=== PATIENT | male | born 1945 | race Caucasian/White ===

== ENCOUNTER 2016-12-30 06:57 | Day surgery (SDC) | payer OTHER ==
--- NOTE | 2016-12-21 19:43 | HP ---
PREOPERATIVE HISTORY AND PHYSICAL EXAM: DATE OF ADMISSION/SURGERY: 12/30/16 [facility] DATE OF OFFICE VISIT/ENCOUNTER: 12/21/16 ATTENDING SURGEON: Patricia Gardner MD (DICTATED BY BRENNEN MC) PROCEDURE: Left thumb carpometacarpal arthroplasty. CHIEF COMPLAINT: Base of left thumb pain. HISTORY OF PRESENT ILLNESS: This is a 71-year-old male who has had longstanding base of left thumb pain. 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 The patient has received a few cortisone injections which were helpful particularly initially, but now have gone to the point where they are providing minimal relief. The patient would like to proceed with more definitive treatment at this time in the form of a left thumb carpometacarpal arthroplasty. PAST MEDICAL HISTORY: 1. Diabetes. 2. Hypertension. 3. Hypercholesterolemia. 4. GERD. PAST SURGICAL HISTORY: 1. Appendectomy. 2. Tonsillectomy. CURRENT MEDICATIONS: 1. Acetaminophen 325 mg 2 tabs q.6 hours p.r.n. pain. 2. Amlodipine besylate 10 mg half tab daily. 3. Aspirin 81 mg daily. 4. Atorvastatin calcium 40 mg daily. 5. Folic acid daily. 6. Invokana 100 mg 1 tab every other day. 7. Janumet mg 1 tab twice a day. 8. Loratadine. 9. Losartan potassium/hydrochlorothiazide half tab daily. 10. [place]-3 acid ethyl esters 1 g daily. 11. Omeprazole 10 mg daily. ALLERGIES: No known drug allergies. FAMILY MEDICAL HISTORY: Diabetes. 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 He denies tobacco use. He does admit to marijuana use on somewhat of a regular occasion. Denies alcohol use. REVIEW OF SYSTEMS: General: Negative for fevers, chills, or night sweats. No known anesthesia problems. HEENT: Negative for headache, lightheadedness, or syncopal episodes. Integumentary: Negative for abrasions, lesions, or open wounds. Cardiothoracic: Positive for hypertension. Negative for chest pain, palpitations, or edema. Pulmonary: Negative for shortness of breath with exertion, chronic cough, or COPD. GI: Positive for GERD. Negative for nausea , vomiting, diarrhea, or constipation. : Negative for nocturia, urinary frequency, urgency, history of UTIs, or kidney problems. Musculoskeletal: Positive for current complaint. Negative for chronic or intermittent back pain or history of fractures. Neurological: Negative for paresthesias, numbness, history of seizure, stroke, or epilepsy. Endocrine: Positive for diabetes. Negative for thyroid issues. Hematologic: Negative for easy bruising, anemia, excessive bleeding, or history of DVT. Infectious Disease: Negative for history of MRSA, hepatitis C, or HIV. PHYSICAL EXAMINATION GENERAL: Well-developed, well-nourished, 71-year-old male in no acute distress. HEENT: Normocephalic, atraumatic. Pupils are equal, round, reactive to light and accommodation. Extraocular movements are intact. NECK: Supple. No palpable lymph nodes. Throat is clear. PULMONARY: Lungs are clear to auscultation bilaterally. No wheezes, rales, or rhonchi. CARDIOTHORACIC: Regular rate and rhythm. S1, S2. No murmurs, rubs, or gallops. ABDOMEN: Positive bowel sounds. Soft, nontender. NEUROLOGICAL: Alert and oriented x3. Cranial nerves II through XII are intact. Sensation is intact to light touch. PERIPHERAL VASCULAR: 2+ radial and ulnar pulses. Negative Jim test. MUSCULOSKELETAL: On exam of his left hand, he has tenderness to palpation at the base of his thumb at the CMC joint and slight decrease in range of motion particularly with opposition. Increased pain with abduction of the thumb. Positive grind test. Neurovascular function is intact. DIAGNOSTIC STUDIES: X-rays, AP, lateral, and oblique of the left thumb show severe degenerative arthritis of the CMC joint. IMPRESSION: Left thumb carpometacarpal joint arthritis. PLAN: The patient is scheduled to undergo left thumb carpometacarpal joint arthroplasty with Dr. Gardner on 12/30/16. He will return to the office 10 to 14 days for followup and suture removal. A prescription for [place] was e-scribed to the patient's pharmacy for postoperative pain management. BRENNEN MC [id number]/[facility] #: [id number] ALLEN
[~2016-12-30 06:57] MED LIST: Buffered Lidocaine 1% SYR 3ML* 3 ML/SYR SYRINGE INTRADERM ONE; Dexamethasone IV* 4 MG/ML 1 ML (4 MG) IV SLOW PU ONE; Dexamethasone IV* 4 MG/ML 1 ML (4 MG) ONE; Famotidine IV* 10 MG/ML 2 ML (20 mg) IV ONE; Famotidine IV* 10 MG/ML 2 ML (20 mg) ONE
[2016-12-30] MEDS ORDERED: ceFAZolin 2 GM PREMIX(*) 2 GM/50 ML BAG IVPB ONE (07:02)
[2016-12-30] MEDS ORDERED: Midazolam* 1 MG/ML 2 ML VIAL (2 MG) ONE (07:08)
[2016-12-30] MEDS ORDERED: fentaNYL* 50 MCG/ML 2 ML VIAL (100 MCG VIAL) ONE (07:08)
[2016-12-30] MEDS ORDERED: HYDROmorphone* 1 MG/ML 1 ML SYR ONE ×2 (07:16→08:24)
[2016-12-30] MEDS ORDERED: fentaNYL* 50 MCG/ML 2 ML VIAL (100 MCG VIAL) IV PRN (07:25)
[2016-12-30] MEDS ORDERED: PROCHLORPERAZINE INJ 5 MG/ML 2 ML VIAL IV PRN (07:25)
[2016-12-30] MEDS ORDERED: Ondansetron INJ* 2 MG/ML VIAL IV PRN (07:25)
[2016-12-30] MEDS ORDERED: HYDROmorphone* 1 MG/ML 1 ML SYR IV PRN (07:25)
[2016-12-30] MEDS ORDERED: DiMENhydriNATE IV* 50 MG/ML VIAL IV PUSH PRN (07:25)
[2016-12-30] MEDS ORDERED: VASOPRESSIN 20 UNITS/ML 1 ML VIAL ONE (08:15)
[2016-12-30] MEDS ORDERED: Meperidine SYRINGE* 50 MG/ML ONE (08:30)
[2016-12-30] MEDS ORDERED: Ketorolac INJ* 30 MG/ML 1 ML VIAL ONE (08:47)
[2016-12-30] MEDS ORDERED: Propofol* 10 MG/ML 20 ML BTL IV PUSH ONE (08:47)
[2016-12-30] MEDS ORDERED: Lidocaine 2% PF * 5 ML VIAL ONE (08:47)
[2016-12-30] MEDS ORDERED: Phenylephrine IV* 40 MCG/ML 10 ML SYRINGE ONE (08:47)
[2016-12-30] MEDS ORDERED: Ondansetron INJ* 2 MG/ML VIAL ONE (08:47)
[2016-12-30 09:58] VITALS: BP 116/70
--- NOTE | 2016-12-30 23:37 | OP ---
DATE OF OPERATION: 12/30/16 [facility] DATE OF : 45 SURGEON: Patricia Gardner MD WEAVER NARROW [employer]AB[employer]: BRENNEN Dent ANESTHESIOLOGIST: Otis Thomas MD ANESTHESIA: Block and general. PRE-OP DIAGNOSIS: Left thumb CMC arthritis. POST-OP DIAGNOSIS: Left thumb CMC arthritis. OPERATIVE PROCEDURE: Left thumb CMC arthroplasty. ESTIMATED BLOOD LOSS: Zero. TOURNIQUET TIME: About 45 minutes. DESCRIPTION OF PROCEDURE: The patient was brought to the operating room, was given a general anesthetic and placed in the supine position on the operating table with a tourniquet around his left upper arm. The skin of his left upper extremity was prepped and draped in the usual sterile fashion. An S-shaped incision was made centered over the CMC joint of the left thumb. We dissected through the subcutaneous tissue. Branches of the radial sensory nerve were located and retracted by the surgical supervisor, Yvette Tilley. The radial artery was then carefully dissected out and also retracted by the surgical supervisor, Yvette Tilley. A distally based U-shaped flap was created of the thumb CMC joint capsule and this was elevated off the trapezium. The trapezium was then removed in its entirety in piecemeal fashion and sent for pathology. The wound was irrigated and then the CMC joint capsule was secured to the FCR tendon in the base of the wound with 4-0 nylon suture, this reapproximated the metacarpal in nice abduction. The remainder of the capsule was closed with 4-0 nylon suture. The skin edges were reapproximated with 4-0 nylon suture. The wound dressed with Xeroform, 4x4, Webril, and a thumb spica splint. The patient tolerated the procedure well and was brought to the recovery room in good condition. [id number]/[facility] #: [id number] MTDD
== END 2016-12-30 09:54 | disposition home or self-care (01) ==
LOC: OREAST 06:57
PROVIDERS: ATTEND Orthopaedic Surgery
DX: M18.0 Bilateral primary osteoarthritis of first carpometacarpal joints (principal); E11.9 Type 2 diabetes mellitus without complications; I10 Essential (primary) hypertension; E78.00 Pure hypercholesterolemia, unspecified; K21.9 Gastro-esophageal reflux disease without esophagitis; Z79.82 Long term (current) use of aspirin
CPT/HCPCS: 88304; 88311; J0690; J1100; J1170; J1885; J2250; J2405; J2704; J3010

== ENCOUNTER 2017-04-04 06:42 | Day surgery (SDC) | payer OTHER ==
--- NOTE | 2017-03-29 10:34 | HP ---
PREOPERATIVE HISTORY AND PHYSICAL: DATE OF SURGERY/ADMISSION: 04/04/17 [facility] DATE OF OFFICE VISIT/ENCOUNTER: 03/22/17 ATTENDING SURGEON: Patricia Gardner MD * (DICTATED BY BRENNEN MC) PROCEDURE: Right thumb carpometacarpal arthroplasty. CHIEF COMPLAINT: Base of right thumb pain. HISTORY OF PRESENT ILLNESS: This is a 71-year-old male who has had longstanding base of right thumb pain. 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 The patient has failed conservative treatment including cortisone injections. He is now interested in proceeding with more definitive treatment in the form of a right thumb carpometacarpal arthroplasty. The patient recently had an arthroplasty performed on his left thumb and did well with that. PAST MEDICAL HISTORY: 1. Diabetes. 2. Hypertension. 3. Hypercholesterolemia. 4. GERD. PAST SURGICAL HISTORY: 1. Appendectomy. 2. Tonsillectomy. 3. Left thumb CMC arthroplasty. CURRENT MEDICATIONS: 1. Amlodipine besylate 10 mg half tab daily. 2. Aspirin 81 mg daily. 3. Atorvastatin calcium 40 mg daily. 4. Folic acid daily. 5. Invokana 100 mg one tab every other day. 6. Janumet mg one tab twice a day. 7. Loratadine. 8. Losartan potassium/hydrochlorothiazide. 9. [place] 3 acid ethyl esters 1 g daily. ALLERGIES: No known drug allergies. FAMILY MEDICAL HISTORY: Diabetes. 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 He denies tobacco use. He does admit to smoking marijuana on somewhat of a regular occasion. He denies alcohol use. REVIEW OF SYSTEMS: General: Negative for fevers, chills, or night sweats. No known anesthesia problems. HEENT: Negative for headache, lightheadedness, or syncopal episodes. Integumentary: Negative for abrasions, lesions, or open wounds. Cardiothoracic: Positive for hypertension, negative for chest pain, palpitations or edema. Pulmonary: Negative for shortness of breath with exertion, chronic cough, COPD. GI: Positive for GERD, negative for nausea, vomiting, diarrhea or constipation. : Negative for nocturia, urinary frequency, urgency, history of UTIs, or kidney problems. Musculoskeletal: Positive for current complaints. Negative for chronic or intermittent back pain or history of fractures. Neurological: Negative for paresthesias, numbness, history of seizure, stroke, or epilepsy. Endocrine: Positive for diabetes, negative for thyroid issues. Hematologic: Negative for easy bruising , anemia, excessive bleeding, or history of DVT. Infectious Disease: Negative for history of MRSA, hepatitis C, or HIV. PHYSICAL EXAMINATION GENERAL: Well-developed, well-nourished 71-year-old male, in no acute distress. HEENT: Normocephalic, atraumatic. Pupils are equal, round, and reactive to light and accommodation. Extraocular movements are intact. NECK: Supple. No palpable lymph nodes. Throat is clear. PULMONARY: Lungs are clear to auscultation bilaterally. No wheezes, rales, or rhonchi. CARDIOTHORACIC: Regular rate and rhythm. S1, S2. No murmurs, rubs or gallops. ABDOMEN: Positive bowel sounds, soft, nontender. NEUROLOGICAL: Alert and oriented x3, cranial nerves II through XII are intact. Sensation is intact to light touch. Peripheral vascular, 2+ radial and ulnar pulses. MUSCULOSKELETAL: On exam of the right hand, there is tenderness to palpation at the base of the thumb at the CMC joint with slight decrease in range of motion particularly with apposition. He has increased pain with abduction of the thumb and positive grind test. Neurovascular function is intact. DIAGNOSTIC STUDIES: X-rays AP, lateral, and oblique of the right thumb shows severe degenerative arthritis of the CMC joint. IMPRESSION: Right thumb, carpometacarpal joint arthritis. PLAN: The patient is scheduled to undergo right thumb carpometacarpal joint arthroplasty with Dr. Gardner on 04/04/17. He will return to the office in 10 to 14 days for followup and suture removal. A prescription for [place] was e- scribed to the patient's pharmacy for postoperative pain management. BRENNEN MC [id number]/[facility] #: [id number] MTDCelina
[~2017-04-04 06:42] MED LIST changes: +Buffered Lidocaine 0.9% SYRIN* 5 ML/SYR SYRINGE INTRADERM ONE; -Buffered Lidocaine 1% SYR 3ML* 3 ML/SYR SYRINGE INTRADERM ONE; -Dexamethasone IV* 4 MG/ML 1 ML (4 MG) ONE; -Famotidine IV* 10 MG/ML 2 ML (20 mg) ONE
[2017-04-04] MEDS ORDERED: ceFAZolin 2 GM PREMIX (*) 50 ML IVPB ONE (06:54)
[2017-04-04] MEDS ORDERED: Dexamethasone IV* 4 MG/ML 1 ML (4 MG) ONE (06:54)
[2017-04-04] MEDS ORDERED: Famotidine IV* 10 MG/ML 2 ML (20 mg) ONE (06:55)
[2017-04-04] MEDS ORDERED: Lidocaine 1% INJ* 10 MG/ML 30 ML SDV ONE (07:06)
[2017-04-04] MEDS ORDERED: Bupivacaine 0.5% SDV PF* 30 ML VIAL ONE (07:06)
[2017-04-04] MEDS ORDERED: fentaNYL* 50 MCG/ML 2 ML VIAL (100 MCG VIAL) ONE (07:36)
[2017-04-04] MEDS ORDERED: Lidocaine 0.5%* 50 ML SDV ONE (07:37)
[2017-04-04] MEDS ORDERED: Midazolam* 1 MG/ML 5 ML VIAL (5 MG) ONE (07:37)
[2017-04-04] MEDS ORDERED: Sodium Bicarbonate 8.4% SYR* 10 ML SYRINGE ONE (07:37)
[2017-04-04] MEDS ORDERED: Lidocaine 2% PF * 5 ML VIAL ONE (07:37)
[2017-04-04] MEDS ORDERED: Ondansetron INJ* 2 MG/ML VIAL ONE (07:37)
[2017-04-04] MEDS ORDERED: Propofol* 10 MG/ML 20 ML BTL IV PUSH ONE (07:37)
[2017-04-04 09:17] VITALS: BP 122/72
--- NOTE | 2017-04-04 15:28 | OP ---
DATE OF OPERATION: 04/04/17 [facility] DATE OF : 45 SURGEON: Patricia Gardner MD MACHINE OPERATOR: BRENNEN Dent ANESTHESIOLOGIST: Will Luevano MD ANESTHESIA: IV regional. PRE-OP DIAGNOSIS: Carpometacarpal arthritis of the right thumb. POST-OP DIAGNOSIS: Carpometacarpal arthritis of the right thumb. OPERATIVE PROCEDURE: Right thumb carpometacarpal arthroplasty. ESTIMATED BLOOD LOSS: Zero. TOURNIQUET TIME: About 40 minutes. INDICATIONS FOR PROCEDURE: Noel is a 71-year-old man with painful carpometacarpal arthritis of the right thumb. He presents for right thumb CMC arthroplasty after failing conservative treatment. DESCRIPTION OF PROCEDURE: The patient was brought to the operating room, was given a IV regional anesthetic with a tourniquet around his right upper arm. Skin of his right upper extremity was prepped and draped in the usual sterile fashion. An S- shaped incision was made centered over the thumb CMC joint. We dissected bluntly through the subcutaneous tissue. Branches of the radial sensory nerve were located and then retracted by the instructional assistant, Yvette Tilley. The APL and EPB tendons were also retracted and then the radial artery branch was carefully dissected out and again retracted by the instructional assistant, Yvette Tilley. A distally based U-shaped flap was created at the thumb CMC joint capsule and it was subperiosteally elevated off of the trapezium. The trapezium was then removed in its entirety with subperiosteal dissection, a Lamb osteotome and rongeur. The wound was irrigated and then the CMC joint capsule was secured to the FCR tendon with a 4-0 nylon suture. The remainder of the capsule was closed with 4-0 nylon suture. This positioned the thumb in a very nice position. The skin edges were reapproximated with 4-0 nylon suture. The wound was dressed with Xeroform, 4x4, Webril, and a thumb spica splint with the metacarpal abducted. The patient tolerated the procedure well and was brought to the recovery room in good condition. [id number]/[facility] #[facility] [id number] [facility]
== END 2017-04-04 09:13 | disposition home or self-care (01) ==
LOC: OREAST 06:42
PROVIDERS: ATTEND Orthopaedic Surgery
DX: M18.11 Unilateral primary osteoarthritis of first carpometacarpal joint, right hand (principal); E11.9 Type 2 diabetes mellitus without complications; I10 Essential (primary) hypertension; E78.00 Pure hypercholesterolemia, unspecified; Z79.82 Long term (current) use of aspirin; Z79.84 Long term (current) use of oral hypoglycemic drugs
CPT/HCPCS: J0690; J1100; J2001; J2250; J2405; J2704; J3010

== ENCOUNTER 2017-10-28 11:56 | Emergency (ER) | payer OTHER ==
[2017-10-28 13:11] VITALS: BP 136/71
--- NOTE | 2017-10-28 13:23 | UC ---
Ear Complaint HPI - HPI Summary HPI Summary: 10 days of worsening left ear pain no fevers---some upper jaw/sinus pain - History of Current Complaint Chief Complaint: UCEar Stated Complaint: EAR COMPLAINT Time Seen by Provider: 10/28/17 13:18 Hx Obtained From: Patient Onset/Duration: Gradual Onset, Lasting Days - 10 Severity Initially: Mild Severity Currently: Moderate Pain Intensity: 4 Pain Scale Used: 0-10 Numeric Aggravating Factors: Nothing Alleviating Factors: Nothing - Allergies/Home Medications Allergies/Adverse Reactions: Allergies Allergy/AdvReac Type Severity Reaction Status Date / Time codeine Allergy GI Upset Verified 10/28/17 13:12 mustard Allergy Anaphylatic Verified 10/28/17 13:12 Shock Home Medications: Home Medications Magnesium Oxide [Magnesium] 500 mg PO 10/28/17 [History] PMH/Surg Hx/FS Hx/Imm Hx Previously Healthy: Yes Endocrine History: Diabetes, Dyslipidemia Cardiovascular History: Hypertension GI/ History: Gastroesophageal Reflux - Surgical History Surgical History: Yes Surgery Procedure, Year, and Place: Appendectomy, tonsillectomy - Family History Known Family History: Positive: None - Social History Occupation: Retired Lives: With Family Alcohol Use: None Substance Use Type: None Substance Use Comment - Amount & Last Used: MARIJUANA- LAST USED A COUPLE OF WEEKS AGO Smoking Status (MU): Never Smoked Tobacco Type: Cigarettes Amount Used/How Often: few cigs day Have You Smoked in the Last Year: No When Did the Patient Quit Smoking/Using Tobacco: 49 years ago - Immunization History Most Recent Influenza Vaccination: season Most Recent Pneumonia Vaccination: 2014 Review of Systems Constitutional: Negative Skin: Negative Eyes: Negative ENT: Ear Ache Respiratory: Negative Cardiovascular: Negative Gastrointestinal: Negative Genitourinary: Negative Motor: Negative Neurovascular: Negative Musculoskeletal: Negative Neurological: Negative Psychological: Negative Is Patient Immunocompromised?: No All Other Systems Reviewed And Are Negative: Yes Physical Exam Triage Information Reviewed: Yes Appearance: Well-Appearing, No Pain Distress, Well-Nourished Vital Signs: Initial Vital Signs Temp 97.6 F 10/28/17 13:01 Pulse 86 10/28/17 13:01 Resp 18 10/28/17 13:01 BP 136/71 10/28/17 13:01 Pulse Ox 98 10/28/17 13:01 Vital Signs Reviewed: Yes Eye Exam: Normal Eyes: Positive: Conjunctiva Clear ENT Exam: Normal ENT: Positive: Normal ENT inspection, Hearing grossly normal, Pharynx normal, TMs normal - right, TM bulging - left slight, Uvula midline. Negative: Nasal congestion, Tonsillar swelling, Tonsillar exudate, Trismus, Muffled voice, Hoarse voice, Sinus tenderness Dental Exam: Normal Neck exam: Normal Neck: Positive: Supple, Nontender, No Lymphadenopathy Respiratory Exam: Normal Respiratory: Positive: Chest non-tender, Lungs clear, Normal breath sounds, No respiratory distress, No accessory muscle use Cardiovascular Exam: Normal Cardiovascular: Positive: RRR, No Murmur, Pulses Normal, Brisk Capillary Refill Musculoskeletal Exam: Normal Musculoskeletal: Positive: Strength Intact, ROM Intact, No Edema Neurological Exam: Normal Neurological: Positive: Muscle Tone Normal Psychological Exam: Normal Skin Exam: Normal Ear Complaint Course/Dx - Course Course Of Treatment: amoxicillin, increase fluids, tylenol, ibuprofen, decongestant prn follow with pcp - Differential Dx/Diagnosis Provider Diagnoses: Left maxillary sinusitis Discharge - Discharge Plan Condition: Stable Disposition: HOME Prescriptions: Amoxicillin PO (*) [Amoxicillin 875 MG (*)] 875 mg PO BID #20 tab Patient Education Materials: Earache (ED) Referrals: Yousif Kumar MD [Primary Care Provider] - If Needed
== END 2017-10-28 13:30 | disposition home or self-care (01) ==
LOC: UCEAST 11:56
DX: J32.0 Chronic maxillary sinusitis (principal); E11.9 Type 2 diabetes mellitus without complications; E78.5 Hyperlipidemia, unspecified; I10 Essential (primary) hypertension; K21.9 Gastro-esophageal reflux disease without esophagitis; Z88.5 Allergy status to narcotic agent; Z87.891 Personal history of nicotine dependence
CPT/HCPCS: 99212; G0463

== ENCOUNTER 2017-12-16 19:16 | Emergency (ER) | payer OTHER ==
[2017-12-16] MEDS ORDERED: LORazepam INJ* 2 MG/ML 1 ML VIAL IM ONE (19:36)
[2017-12-16] MEDS ORDERED: Ketorolac INJ* 60 MG/2 ML VIAL IM ONE (19:36)
--- NOTE | 2017-12-16 20:15 | RAD ---
Indication: RIGHT lower rib injury from running into a wall. Comparison: September 30, 2014 Technique: PA chest and 2 dedicated views of the RIGHT ribs. Report: No RIGHT rib fracture, pulmonary consolidation, pleural effusion, pneumothorax. The heart, pulmonary vasculature, and mediastinal contours are unremarkable. Unremarkable soft tissue contours. IMPRESSION: No evidence for RIGHT rib fracture or pneumothorax. Negative exam.
[2017-12-16 21:04] VITALS: BP 105/66
--- NOTE | 2017-12-17 03:19 | ED ---
Cynthia Hagan Emily, scribed for Regulo Obregon MD on 12/16/17 at 1936 . Back Pain - HPI Summary HPI Summary: This patient is a 72 year old M BIBA to [facility] with a chief complaint of mid back pain 12/13/3017. Pt reports falling and hitting his back and left elbow on a blackboard on 12/13/2017. 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 The patient rates the pain 3/10 in severity. Symptoms aggravated by movement and deep breathing. Symptoms alleviated by nothing. Patient reports diaphoresis and dizziness. Patient denies hematuria, nausea, vomiting, lower extremity pain, bowel symptoms, and urinary symptoms. - History of Current Complaint Chief Complaint: EDBackInjuryPain Stated Complaint: BACK PAIN Hx Obtained From: Patient Onset/Duration: Sudden Onset, Lasting Days, Still Present Onset/Duration: Started Days Ago, Traumatic, Still Present, Worse Since - PROPULSION GENERATOR REPAIRER Severity Initially: Mild Severity Currently: Mild Pain Intensity: 3 Pain Scale Used: 0-10 Numeric Aggravating Symptom(s): Movement, Other - Deep breaths Alleviating Symptom(s): Nothing Associated Signs And Symptoms: Positive: Other - Positive diaphoresis and dizziness. Negative hematuria, nausea, vomiting, lower extremity pain, bowel symptoms, and urinary symptoms - Allergies/Home Medications Allergies/Adverse Reactions: Allergies Allergy/AdvReac Type Severity Reaction Status Date / Time mustard Allergy Anaphylatic Verified 12/16/17 19:27 Shock codeine AdvReac GI Upset Verified 12/16/17 19:27 PMH/Surg Hx/FS Hx/Imm Hx Previously Healthy: No Endocrine/Hematology History: Reports: Hx Diabetes - Type 2 Denies: Hx Thyroid Disease Cardiovascular History: Reports: Hx Hypertension, Other Cardiovascular Problems/ Disorders - hyperlipidemia Denies: Hx Pacemaker/ICD Respiratory History: Reports: Hx Asthma Denies: Hx Chronic Obstructive Pulmonary Disease (COPD) GI History: Reports: Hx Gastroesophageal Reflux Disease - controlled by med Denies: Hx Ulcer History: Reports: Hx Kidney Stones - at 20 yrs old, no probs since Musculoskeletal History: Reports: Hx Arthritis - osteoarthritis, Other Musculoskeletal History - currently right torn biceps - evaluated by md - no repair needed Sensory History: Reports: Hx Contacts or Glasses - glasses Denies: Hx Hearing Aid Opthamlomology History: Reports: Hx Contacts or Glasses - glasses - Surgical History Surgery Procedure, Year, and Place: Appendectomy, tonsillectomy Hx Anesthesia Reactions: No Infectious Disease History: No Infectious Disease History: Denies: Hx Clostridium Difficile, Hx Hepatitis, Hx Human Immunodeficiency Virus (HIV), Hx of Known/Suspected MRSA, Hx Shingles, Hx Tuberculosis, Hx Known/ Suspected VRE, Hx Known/Suspected VRSA, History Other Infectious Disease, Traveled Outside the [place] in Last 30 Days - Family History Known Family History: Positive: None - Social History Occupation: Employed Full-time Lives: With Family Alcohol Use: None Substance Use Type: Reports: None Substance Use Comment - Amount & Last Used: MARIJUANA- LAST USED A COUPLE OF WEEKS AGO Smoking Status (MU): Never Smoked Tobacco Type: Cigarettes Amount Used/How Often: few cigs day Have You Smoked in the Last Year: No Review of Systems Positive: Skin Diaphoresis Positive: Other - Negative bowel symptoms. Negative: Vomiting, Nausea Genitourinary: Negative Negative: hematuria Positive: Other - Negative lower extremity pain Neurological: Other - Positive dizziness All Other Systems Reviewed And Are Negative: Yes Physical Exam - Summary Physical Exam Summary: Appearance: Well appearing, no pain distress Skin: warm, dry, reflects adequate perfusion, Scab on the olecranon and some ecchymosis on the right elbow that looks about 3 days old. Head/face: normal Eyes: EOMI, FREDDIE ENT: normal Neck: supple, non-tender Respiratory: CTA, breath sounds present Cardiovascular: RRR, pulses symmetrical Abdomen: non-tender, soft Bowel Sounds: present Musculoskeletal: normal, strength/ROM intact, Ecchymotic and sore area 10-12 ribs and right flank Neuro: normal, sensory motor intact, A&Ox3 Triage Information Reviewed: Yes Vital Signs On Initial Exam: Initial Vitals Temp Pulse Resp BP Pulse Ox 97.9 F 59 20 121/69 98 12/16/17 19:18 12/16/17 19:18 12/16/17 19:18 12/16/17 19:18 12/16/17 19:18 Vital Signs Reviewed: Yes Procedures - Procedure Summary Procedure Summary: Trigger point injection right paralumbar musculature: Reason: Back pain/spasm Description: The area of tender, spasmed musculature in the right upper lumbar and low thoracic area was cleaned with alcohol. It was then injected with a total of mixed 5 cc of 1% lidocaine with epinephrine and 10 cc of 0.5% bupivacaine. This was massaged to the tissues. Pain relief was excellent. Tolerated well without complications. Diagnostics - Vital Signs Vital Signs Temp Pulse Resp BP Pulse Ox 12/16/17 19:18 97.9 F 59 20 121/69 98 - Laboratory Lab Statement: Any lab studies that have been ordered have been reviewed, and results considered in the medical decision making process. - Radiology Right Rib XR Radiology Interpretation Completed By: Radiologist - R ribs XR reveals, per radiologist, no evidence for RIGHT rib fracture or pneumothorax. Negative exam. ED physician has reviewed this radiology report. Re-Evaluation - Re-Evaluation First Eval Re-Evaluation Time: 20:34 Change: Improved Comment: Pt reports symptoms feeling much improved Back Pain Course/Dx - Course Course Of Treatment: Patient with fall and contusion to his chest wall. X-rays are negative. Pain is greatly improved with trigger point injection. - Diagnoses Differential Diagnosis/HQI/PQRI: Positive: Fracture, Strain, Sprain, Other - Contusion Provider Diagnoses: Lumbar paraspinal muscle spasm, Rib contusion Discharge - Sign-Out/Discharge Documenting (check all that apply): Discharge/Admit/Transfer - Discharge - Discharge Plan Condition: Improved Disposition: HOME Patient Education Materials: Low Back Strain (ED), Contusion in Adults (ED) Referrals: Yousif Kumar MD [Primary Care Provider] - Additional Instructions: Rest, ice, massage and range of motion exercises. Tylenol as needed. Return if worse, new symptoms or other concerns. The documentation as recorded by the Cynthia hwang Emily accurately reflects the service I personally performed and the decisions made by me, Regulo Obregon MD.
== END 2017-12-16 21:02 | disposition home or self-care (01) ==
LOC: ED 19:16
DX: S20.219A Contusion of unspecified front wall of thorax, initial encounter (principal); M54.9 Dorsalgia, unspecified; R42 Dizziness and giddiness; M62.830 Muscle spasm of back; X50.9XXA Other and unspecified overexertion or strenuous movements or postures, initial encounter; Y92.9 Unspecified place or not applicable
CPT/HCPCS: 96372; 99283; J1885; J2060